=== PATIENT | male | born 1950 | race African-American/Black ===

== ENCOUNTER 2018-04-01 08:49 | Emergency (ER) | payer MEDICARE ==
[~2018-04-01] VITALS: Ht 182.9 cm; Wt 118.2 kg
[~2018-04-01 08:49] MED LIST: ALDACTONE 25MG25 M1 PO; COZAAR100 MG PO; FELODIPINE10 MG PO; GLIPIZIDE10 MG PO; GLUCOPHAGE500 MG/TAB PO; METFORMIN850 MG PO; NORCO 325 MG-51 TAB PO; PHENERGAN 25 TA25 MG PO; RANITIDINE150 MG PO
[2018-04-01 09:00] VITALS: TEMP 98.1
[2018-04-01] MEDS ORDERED: APRESOLINE 25MG25 MG PO (09:06)
[2018-04-01] MEDS ORDERED: LANTUS100 U/ML SQ (09:07)
[2018-04-01] MEDS ORDERED: NORVASC 10MG10 MG PO (09:07)
[2018-04-01] MEDS ORDERED: NOVOLOG FLEX100 U/ML SQ (09:07)
[2018-04-01] MEDS ORDERED: COZAAR 50MG50 MG/TAB PO (09:08)
[2018-04-01 09:36] LABS: BASO # 0.1 (0.0-0.2); BASO % 0.7 % (0.0-2.0); EOS # 0.2 (0.0-0.7); EOS % 2.7 % (0-4.0); GRAN # 4.8 (1.4-6.5); GRAN % 64.2 % (42.2-75.2); HEMATOCRIT 41.5 % (42.0-52.0); HEMOGLOBIN 14.1 g/dl (13.5-18.0); LYMPH # 1.8 (1.2-3.4); LYMPH % 24.1 % (20.0-51.0); MEAN CELL VOLUME 86 fl (80.0-100.0); MEAN CORPUSCULAR HEMOGLOBIN 29 pg (27.0-31.0); MEAN CORPUSCULAR HGB CONC 34 g/dl (33.0-37.0); MEAN PLATELET VOLUME 9.9 fl (7.4-10.4); MONO # 0.6 (0.1-0.6); PLATELET COUNT 327 K/mm3 (130-400); RED BLOOD COUNT 4.85 M/mm3 (4.20-5.60); REDCELL DISTRIBUTION WIDTH-CV 12.8 % (11.5-14.5)
[2018-04-01 09:43] LABS: PARTIAL THROMBOPLASTIN TIME 31.7 SECONDS (26.0-37.0)
[2018-04-01 09:50] LABS: ALBUMIN 3.6 gm/dL (3.5-5.0); BILIRUBIN,TOTAL 0.4 mg/dL (0.0-1.0); CALCIUM 9.2 mg/dL (8.4-10.2); CREATININE, serum 2.05 mg/dL (0.66-1.25); POTASSIUM 4.5 mmol/L (3.4-5.0)
[2018-04-01 10:01] LABS: TROPONIN-I 0.022 ng/mL (0.000-0.034)
[2018-04-01 11:29] VITALS: BP 161/88; PULSE 64
== END 2018-04-01 11:32 | disposition home or self-care (01) ==
LOC: COL.ER 08:49
PROVIDERS: Physician Assistant
DX: M62.81 Muscle weakness (generalized) (principal); I10 Essential (primary) hypertension; E11.9 Type 2 diabetes mellitus without complications; Z98.890 Other specified postprocedural states; Z79.4 Long term (current) use of insulin
CPT/HCPCS: J7030

== ENCOUNTER 2019-08-05 07:35 | Day surgery (SDC) | payer MEDICARE ==
[~2019-08-05] VITALS: Ht 182.9 cm; Wt 118.6 kg
[~2019-08-05 07:35] MED LIST changes: +APRESOLINE 25MG25 MG PO; +COZAAR 50MG50 MG/TAB PO; +LANTUS100 U/ML SQ; +NORVASC 10MG10 MG PO; +NOVOLOG FLEX100 U/ML SQ
[2019-08-05 08:31] VITALS: BP 196/94; PULSE 86; TEMP 98.4
[2019-08-05 09:17] VITALS: BP 153/84; PULSE 86; TEMP 97.7
--- NOTE | 2019-08-05 09:17 | NUR ---
Patient brought back to [facility] via cart. Ambulated to chair without difficulty. Placed on monitors, vital signs stable. Patient states he would like a juice at this time. Denies pain or nausea. Will continue to monitor.
[2019-08-05 09:32] VITALS: BP 162/94; PULSE 83
[2019-08-05 09:47] VITALS: BP 173/98; PULSE 89
--- NOTE | 2019-08-05 09:47 | NUR ---
Patient states he is feeling ready to go home. Awaiting conversation with Dr. Forrest. Will continue to monitor.
--- NOTE | 2019-08-05 10:12 | NUR ---
Patient is doing well. Tolerating drink at this time. Asking for jello and applesauce at this time. Will continue to monitor.
--- NOTE | 2019-08-05 10:25 | NUR ---
Discharge instructions reviwed with patient and . All questions answered. Patient brought down to lobby via wheel chair. To be driven home by .
== END 2019-08-05 10:25 | disposition home or self-care (01) ==
LOC: SDCO 07:35
DX: Z12.11 Encounter for screening for malignant neoplasm of colon (principal); Z86.010 Personal history of colon polyps; Z86.19 Personal history of other infectious and parasitic diseases; K57.30 Diverticulosis of large intestine without perforation or abscess without bleeding; E11.22 Type 2 diabetes mellitus with diabetic chronic kidney disease; I12.9 Hypertensive chronic kidney disease with stage 1 through stage 4 chronic kidney disease, or unspecified chronic kidney disease; N18.9 Chronic kidney disease, unspecified; G47.33 Obstructive sleep apnea (adult) (pediatric); E78.00 Pure hypercholesterolemia, unspecified; Z79.899 Other long term (current) drug therapy; Z79.4 Long term (current) use of insulin
CPT/HCPCS: J2704

== ENCOUNTER 2020-01-30 12:43 | Emergency (ER) | payer OTHER ==
[~2020-01-30] VITALS: Ht 182.9 cm; Wt 112.3 kg
[~2020-01-30 12:43] MED LIST changes: +AUGMENTIN 250150 ML PO; +DEMADEX100 MG PO
[2020-01-30 13:10] VITALS: TEMP 98.5
[2020-01-30] MEDS ORDERED: COREG 25MG25 MG/TAB PO (13:45)
[2020-01-30 14:31] LABS: BASO % 0.4 % (0.0-2.0); EOS # 0.3 (0.0-0.7); EOS % 4.4 % (0-4.0); GRAN # 4.5 (1.4-6.5); GRAN % 60.9 % (42.2-75.2); HEMOGLOBIN 10.3 g/dl (13.5-18.0); LYMPH # 1.8 (1.2-3.4); LYMPH % 24.1 % (20.0-51.0); MEAN CELL VOLUME 86 fl (80.0-100.0); MEAN CORPUSCULAR HEMOGLOBIN 29 pg (27.0-31.0); MEAN CORPUSCULAR HGB CONC 33 g/dl (33.0-37.0); MEAN PLATELET VOLUME 9.9 fl (7.4-10.4); MONO # 0.7 (0.1-0.6); MONO % 9.7 % (1.7-9.3); PLATELET COUNT 359 K/mm3 (130-400); RED BLOOD COUNT 3.62 M/mm3 (4.20-5.60); REDCELL DISTRIBUTION WIDTH-CV 13.3 % (11.5-14.5)
[2020-01-30 14:39] LABS: HEMATOCRIT 31.2 % (42.0-52.0)
[2020-01-30 14:42] LABS: CALCIUM 8.4 mg/dL (8.4-10.2); CREATININE, serum 6.39 (0.66-1.25); POTASSIUM 3.4 mmol/L (3.4-5.0)
[2020-01-30 14:48] LABS: INR 1.1 (0.8-3.0); PROTHROMBIN TIME 12.4 SECONDS (9.7-12.8)
[2020-01-30 15:39] VITALS: BP 165/96; PULSE 65
== END 2020-01-30 15:41 | disposition home or self-care (01) ==
LOC: COL.ER 12:43
PROVIDERS: Emergency Medicine
DX: R04.0 Epistaxis (principal); I12.9 Hypertensive chronic kidney disease with stage 1 through stage 4 chronic kidney disease, or unspecified chronic kidney disease; N18.9 Chronic kidney disease, unspecified; Z79.4 Long term (current) use of insulin

== ENCOUNTER 2020-01-31 12:43 | Emergency (ER) | payer OTHER ==
[~2020-01-31] VITALS: Ht 182.9 cm; Wt 112.3 kg
[~2020-01-31 12:43] MED LIST changes: +COREG 25MG25 MG/TAB PO
[2020-01-31 12:49] VITALS: TEMP 98.4
[2020-01-31 13:26] LABS: COLLECTION METHOD CLEAN CATCH
[2020-01-31 13:34] LABS: MUCOUS Present /lpf; PH 6 (5-8); SQUAMOUS EPITHELIAL 0-2 /hpf; URINE APPEARANCE Clear; URINE BACTERIA Rare /hpf; URINE BILIRUBIN Negative (NEGATIVE); URINE BLOOD Negative (NEGATIVE); URINE COLOR Yellow; URINE GLUCOSE 3+ (NEGATIVE); URINE KETONE Negative (NEGATIVE); URINE LEUKOCYTE ESTERASE Negative (NEGATIVE); URINE NITRATE Negative (NEGATIVE); URINE PROTEIN(semi-quant) 3+ (NEGATIVE); URINE RBC 0-2 /hpf; URINE UROBILINOGEN Negative (NEGATIVE)
[2020-01-31 14:41] VITALS: BP 140/85; PULSE 66
== END 2020-01-31 14:42 | disposition home or self-care (01) ==
LOC: COL.ER 12:43
PROVIDERS: Emergency Medicine
DX: E11.22 Type 2 diabetes mellitus with diabetic chronic kidney disease (principal); I12.0 Hypertensive chronic kidney disease with stage 5 chronic kidney disease or end stage renal disease; N18.6 End stage renal disease; Z99.2 Dependence on renal dialysis; Z79.4 Long term (current) use of insulin

== ENCOUNTER 2020-02-10 05:39 | Emergency (ER) | payer MEDICARE ==
[~2020-02-10] VITALS: Ht 182.9 cm; Wt 109.1 kg
[2020-02-10 05:43] VITALS: TEMP 98
[2020-02-10] MEDS ORDERED: CEPHALEXIN500 M1 PO (12:05)
[2020-02-10 12:15] VITALS: BP 162/84; PULSE 61
[2020-02-10] MEDS ORDERED: MUCINEX 60600 MG/TA1 PO (22:47)
[2020-02-10] MEDS ORDERED: FLONASEALLERGY NS (22:48)
== END 2020-02-10 12:54 | disposition home or self-care (01) ==
LOC: COL.ER 05:39
DX: R04.0 Epistaxis (principal); I12.9 Hypertensive chronic kidney disease with stage 1 through stage 4 chronic kidney disease, or unspecified chronic kidney disease; E11.22 Type 2 diabetes mellitus with diabetic chronic kidney disease; N18.9 Chronic kidney disease, unspecified; Z79.4 Long term (current) use of insulin

== ENCOUNTER 2020-02-10 20:45 | Emergency (ER) | payer MEDICARE ==
[~2020-02-10] VITALS: Ht 182.9 cm; Wt 112.3 kg
[~2020-02-10 20:45] MED LIST changes: +CEPHALEXIN500 M1 PO
[2020-02-10 20:53] VITALS: TEMP 99
[2020-02-10] MEDS ORDERED: MUCINEX 60600 MG/TA1 PO (22:47)
[2020-02-10] MEDS ORDERED: FLONASEALLERGY NS (22:48)
[2020-02-10 22:52] VITALS: BP 162/75; PULSE 71
== END 2020-02-10 22:54 | disposition home or self-care (01) ==
LOC: COL.ER 20:45
DX: R04.0 Epistaxis (principal); R09.81 Nasal congestion; I12.9 Hypertensive chronic kidney disease with stage 1 through stage 4 chronic kidney disease, or unspecified chronic kidney disease; E11.22 Type 2 diabetes mellitus with diabetic chronic kidney disease; N18.9 Chronic kidney disease, unspecified; Z79.4 Long term (current) use of insulin

== ENCOUNTER 2020-12-14 08:52 | Day surgery (SDC) | payer OTHER ==
[~2020-12-14] VITALS: Ht 182.9 cm; Wt 115.2 kg
[~2020-12-14 08:52] MED LIST changes: +FLONASEALLERGY NS; +MINOXIDIL 10 PO; +MINOXIDIL 2.5 PO; +MUCINEX 60600 MG/TA1 PO; +PHOS LO PO; +PHOSLO667 MG PO; +VITAMIN D31000 I1 PO
[2020-12-14] MEDS ORDERED: NOVOLOG FLEX100 U/ML SQ (10:39)
[2020-12-14 10:51] LABS: CALCIUM 9.3 mg/dL (8.4-10.2); CREATININE, serum 5.3 (0.66-1.25); POTASSIUM 4.4 mmol/L (3.4-5.0)
[2020-12-14 11:38] VITALS: BP 151/85; PULSE 63; TEMP 97.3
[2020-12-14] MEDS ORDERED: MIRALAX PA17 GM/Dose PO (11:43)
[2020-12-14] MEDS ORDERED: NORCO 325 MG-51 TAB PO (13:00)
[2020-12-14 13:40] VITALS: BP 146/83; PULSE 59; TEMP 97.7
--- NOTE | 2020-12-14 13:40 | NUR ---
Patient arrives to [facility] [place] [facility] via cart, accompanied by OUTREACH LIAISON Susie. He is alert and oriented. He denies any pain, nausea, or need. His fistula has a palpable thrill. It is on his right wrist and the incision is closed with clean/dry/intact glue. His peritoneal dialysis catheter has been removed and that site is clean/dry/ glue intact. Monitoring is applied -VSS and WNL on room air. Lights are dimmed for comfort, and patient is resting.
[2020-12-14 13:55] VITALS: BP 155/87; PULSE 58
--- NOTE | 2020-12-14 13:55 | NUR ---
VSS and WNL on room air. He is resting comfortably. Denies pain or nausea. He is offered and receives water to drink. He does not want to have any food.
[2020-12-14 14:10] VITALS: BP 155/85; PULSE 57
--- NOTE | 2020-12-14 14:30 | NUR ---
Patient ambulates to the restroom with standby assist and steady gait. He voids, and returns to room.
[2020-12-14 14:45] VITALS: BP 159/90; PULSE 58
[2020-12-14 15:00] VITALS: BP 146/85; PULSE 58
--- NOTE | 2020-12-14 15:15 | NUR ---
Patient states he is ready to go home. He has met discharge criteria. PIV is removed with catheter intact and hemostasis achieved. Discharge instructions are discussed. He denies any questions and verbalizes understanding. He is changing to his clothing independently.
--- NOTE | 2020-12-14 15:29 | NUR ---
Patient is escorted to the exit via wheelchair by staff. He is discharged to the care of his friend, Lori, who drives him home in a private car at 1529.
== END 2020-12-14 15:29 | disposition home or self-care (01) ==
LOC: SDCO
PROVIDERS: Surgery
DX: T85.9XXA Unspecified complication of internal prosthetic device, implant and graft, initial encounter (principal); N18.6 End stage renal disease; I12.0 Hypertensive chronic kidney disease with stage 5 chronic kidney disease or end stage renal disease; E11.22 Type 2 diabetes mellitus with diabetic chronic kidney disease; E11.21 Type 2 diabetes mellitus with diabetic nephropathy; G47.30 Sleep apnea, unspecified; Z79.4 Long term (current) use of insulin; Z49.02 Encounter for fitting and adjustment of peritoneal dialysis catheter; Z79.899 Other long term (current) drug therapy; Z79.82 Long term (current) use of aspirin; Z88.8 Allergy status to other drugs, medicaments and biological substances; Z20.822 Contact with and (suspected) exposure to COVID-19
CPT/HCPCS: J0690; J1644; J2405; J2704; J3010

== ENCOUNTER 2021-04-03 10:06 | Outpatient (CLI) | payer OTHER ==
[~2021-04-03] VITALS: Ht 183 cm; Wt 118.0 kg
[~2021-04-03 10:06] MED LIST changes: +MIRALAX PA17 GM/Dose PO
[2021-04-03 10:53] VITALS: BP 131/69; PULSE 56; TEMP 97.8
[2021-04-03] MEDS ORDERED: MINOXIDIL 10 PO (12:05)
[2021-04-03 13:00] VITALS: BP 121/72; PULSE 61
--- NOTE | 2021-04-03 13:00 | NUR ---
PT RETURNED TO [facility] 11 VIA BED FROM SUPPLY ANALYST, NO SEDATION WAS GIVEN, DONE UNDER LOCAL. HAS BANDAID TO RIGHT LOWER ARM CLEAN AND DRY, NO SIGNS OF BLEEDING. PT HAS NO C/O, JUICE GIVEN. CALL LIGHT IN REACH
[2021-04-03 13:15] VITALS: BP 135/75; PULSE 57
[2021-04-03 13:30] VITALS: BP 134/74; PULSE 56
[2021-04-03 14:00] VITALS: BP 145/78; PULSE 52
--- NOTE | 2021-04-03 14:15 | NUR ---
PT SITS ON SIDE OF BED AND TAKES SNACK, THEN KINGSLEY ARRIVED, NO C/O, REVIEWED DISCHARGE INST. WITH PT ON CARE OF SITE, PRECAUTIONS AND FOLLOWUP WITH VERBAL UNDERSTANDING.
[2021-04-03 14:45] VITALS: BP 140/78; PULSE 56
--- NOTE | 2021-04-03 14:45 | NUR ---
[facility] INTACT. PT UP AND DRESSED, PT DISCHARGED VIA W/C TO ENTRANCE, PT DROVE SELF STATES FEELS WELL, NO SEDATION WAS GIVEN
== END 2021-04-03 15:00 | disposition home or self-care (01) ==
LOC: COL.CAR 10:06
DX: T82.898A Other specified complication of vascular prosthetic devices, implants and grafts, initial encounter (principal)
CPT/HCPCS: J1644; Q9967

== ENCOUNTER 2021-05-03 08:54 | Day surgery (SDC) | payer OTHER ==
[~2021-05-03] VITALS: Ht 182.9 cm; Wt 119.4 kg
[2021-05-03 10:23] VITALS: BP 143/68; PULSE 56; TEMP 98.4
[2021-05-03] MEDS ORDERED: PROVENTIL0.09 MG/A1 IH (10:29)
[2021-05-03 13:25] VITALS: BP 140/65; PULSE 50; TEMP 97.4
--- NOTE | 2021-05-03 13:25 | NUR ---
Pt to [facility] bay 6 via cart from PACU. Pt drowsy, but awake. Pt denies pain or nausea. Pt has burton set intact to right arm incision. Site is clean, and dry. +Thrill noted at fistula with +2 right radial pulse. IV fluids are at TKO. IV site to left forearm without redness or edema. Soda and muffin given per pt request. Will continue to monitor. Call light within reach.
[2021-05-03 13:40] VITALS: BP 139/62; PULSE 50
--- NOTE | 2021-05-03 13:40 | NUR ---
Pt tolerating food and fluids without difficulties. Pt denies needs. Call light within reach.
[2021-05-03 13:55] VITALS: BP 145/67; PULSE 49
--- NOTE | 2021-05-03 13:55 | NUR ---
Pt continues to rest. Denies needs. Call light within reach.
[2021-05-03 14:10] VITALS: BP 137/61; PULSE 50
--- NOTE | 2021-05-03 14:10 | NUR ---
IV site discontinued with all parts intact. Discharge instructions reviewed. Pt voices understanding. Pt up to dress. Call light within reach.
--- NOTE | 2021-05-03 14:30 | NUR ---
Pt escorted to private car via wheel chair. Pt accompanied home by his friend.
== END 2021-05-03 14:30 | disposition home or self-care (01) ==
LOC: SDCO 08:54
DX: T82.590A Other mechanical complication of surgically created arteriovenous fistula, initial encounter (principal); I13.2 Hypertensive heart and chronic kidney disease with heart failure and with stage 5 chronic kidney disease, or end stage renal disease; E11.22 Type 2 diabetes mellitus with diabetic chronic kidney disease; N18.6 End stage renal disease; I50.30 Unspecified diastolic (congestive) heart failure; I25.2 Old myocardial infarction; G47.33 Obstructive sleep apnea (adult) (pediatric); Z20.822 Contact with and (suspected) exposure to COVID-19; Z99.2 Dependence on renal dialysis; Z79.4 Long term (current) use of insulin; Z79.82 Long term (current) use of aspirin
CPT/HCPCS: J0690; J2704; J7030

== ENCOUNTER → 2021-05-07 | Outpatient (CLI) | payer OTHER ==
[~2021-05-07] MED LIST changes: +PROVENTIL0.09 MG/A1 IH
== END ==
LOC: COL.RAD 11:34
DX: R18.8 Other ascites (principal)

== ENCOUNTER → 2021-05-17 | Outpatient (CLI) | payer OTHER | LOC: COL.RAD 07:41 | DX: R18.8 Other ascites (principal) ==

== ENCOUNTER 2022-11-08 16:03 | Emergency (ER) | payer OTHER ==
[~2022-11-08] VITALS: Ht 182.9 cm; Wt 113.6 kg
[2022-11-08 16:08] VITALS: TEMP 98.9
[2022-11-08 17:23] VITALS: BP 153/88; PULSE 79
== END 2022-11-08 17:25 | disposition home or self-care (01) ==
LOC: COL.ER 16:03
DX: Z49.01 Encounter for fitting and adjustment of extracorporeal dialysis catheter (principal)

== ENCOUNTER 2022-12-31 10:29 | Day surgery (SDC) | payer OTHER ==
[~2022-12-31] VITALS: Ht 180.3 cm; Wt 112.3 kg
[2022-12-31] VITALS (7 sets, daily range): BP systolic 151–203; BP diastolic 57–75; PULSE 55–67; TEMP 96.8–97.8
[2022-12-31] MEDS ORDERED: COZAAR100 MG PO (11:48)
[2022-12-31] MEDS ORDERED: PARLODEL 2.5MG2.5 MG PO (11:49)
[2022-12-31] MEDS ORDERED: CELEBREX 200MG200 MG PO (11:50)
[2022-12-31 11:53] LABS: CALCIUM 9.5 mg/dL (8.4-10.2); CREATININE, serum 6.47 mg/dL (0.72-1.25); POTASSIUM 4.6 mmol/L (3.5-4.5)
[2022-12-31] MEDS ORDERED: NORCO 325 MG-51 TAB PO (14:34)
--- NOTE | 2022-12-31 15:30 | NUR ---
1530 PATIENT RETURNS TO ROOM 8 VIA CART. PATIENT IS DROWSY BUT ALERTS TO VERBAL STIMULI. PATIENT IS IN ROOM. RESPIRATIONS EVEN AND UNLABORED. VITAL SIGNS OBTAINED. 3 LAP SITES TO ABDOMEN WITH SKIN GLUE, CDI. PERITONEAL DIALYSIS CATHETER SITE IS COVERED WITH 4X4 AND MEDIPORE, CDI. PATIENT IS NOT C/O ANY PAIN AT THIS TIME. PATIENT REQUESTED AN APPLE JUICE, NO DIFFICULTIES SWALLOWING. 1600 PATIENT BLOOD PRESSURE CONTINUES TO RISE STEADILY. PATIENT'S BLOOD PRESSURE PRE OP WAS HIGH. THIS NURSE CALLED ANESTHESIA TO INFORM HIM OF RECCENT BLOOD PRESSURE'S. CRAIG Mcduffie STATES THAT HE IS OK WITH SENDING PATIENT HOME AND NNO. PATIENT STATES THAT HE FEELS FINE. NO HEADACHE OR BLURRED VISION. 1608 PATIENT STATES THAT HIS PAIN IS A 8/10. THIS NURSE GAVE PATIENT A PRN NORCO PER MD ORDERS. 1610 THIS NURSE REVIEWED DISCHARGE INSTRUCTIONS WITH PATIENT AND PATIENT . BOTH VERBALIZED UNDERSTANDING. 1625 DISCONINUED IV FROM LEFT AC WITH NO DIFFICULTIES. 1630 PATIENT DRESSES SELF. 1640 PATIENT DISCHARGES FROM UNIT VIA WHEELCHAIR IN STABLE CONDITION. PATIENT IS DRIVING PATIENT HOME.
== END 2022-12-31 16:40 | disposition home or self-care (01) ==
LOC: SDCO 10:29
PROVIDERS: Nurse Anesthetist, Certified Registered
DX: I12.0 Hypertensive chronic kidney disease with stage 5 chronic kidney disease or end stage renal disease (principal); E11.22 Type 2 diabetes mellitus with diabetic chronic kidney disease; N18.6 End stage renal disease; G47.33 Obstructive sleep apnea (adult) (pediatric); Z99.81 Dependence on supplemental oxygen; Z79.4 Long term (current) use of insulin
CPT/HCPCS: C1750; J0690; J1100; J2405; J2704; J3010; J7030

== ENCOUNTER → 2023-07-23 | Outpatient (CLI) | payer OTHER ==
[~2023-07-23] MED LIST changes: +AMOXICILLIN 50500 MG PO; +ASPIRIN E.C. 8181 MG PO; +CELEBREX 200MG200 MG PO; +COUMADIN 2MG2 MG/TAB PO; +DIFLUCAN200 MG PO; +JANTOVEN2 MG PO; +PARLODEL 2.5MG2.5 MG PO; +ROCALTROL0.5 MCG PO; +testosterone PO
== END ==
LOC: COL.RAD 13:07
DX: R10.9 Unspecified abdominal pain (principal); R18.8 Other ascites
CPT/HCPCS: Q9967

== ENCOUNTER 2023-08-05 06:19 | Emergency (ER) | payer OTHER ==
[~2023-08-05] VITALS: Ht 182.9 cm; Wt 114.5 kg
[2023-08-05 06:33] VITALS: TEMP 97.9
[2023-08-05 06:53] LABS: BASO % 0.6 % (0.0-2.0); EOS # 0.4 K/mm3 (0.0-0.7); EOS % 5.1 % (0.0-4.0); GRAN # 4.4 K/mm3 (1.4-6.5); GRAN % 63.3 % (42.2-75.2); HEMOGLOBIN 12.1 g/dl (13.5-18.0); LYMPH # 1.5 K/mm3 (1.2-3.4); LYMPH % 21.4 % (20.0-51.0); MEAN CELL VOLUME 89 fl (80.0-100.0); MEAN CORPUSCULAR HEMOGLOBIN 30 pg (27-31); MEAN CORPUSCULAR HGB CONC 34 g/dl (33.0-37.0); MEAN PLATELET VOLUME 9.9 fl (7.4-10.4); MONO # 0.7 K/mm3 (0.1-0.6); MONO % 9.3 % (1.7-9.3); PLATELET COUNT 292 K/mm3 (130-400); RED BLOOD COUNT 4.04 M/mm3 (4.20-5.60); REDCELL DISTRIBUTION WIDTH-CV 14.4 % (11.5-14.5)
[2023-08-05 07:04] LABS: PROTHROMBIN TIME 11.3 SECONDS (9.7-12.8)
[2023-08-05 07:06] LABS: PARTIAL THROMBOPLASTIN TIME 30.7 SECONDS (26.0-37.0)
[2023-08-05 07:10] LABS: ALBUMIN 3.6 gm/dL (3.4-4.8); BILIRUBIN,TOTAL 0.4 mg/dL (0.2-1.2); CALCIUM 8.8 mg/dL (8.4-10.2); CREATININE, serum 8.76 mg/dL (0.72-1.25); POTASSIUM 4.2 mmol/L (3.5-4.5); TOTAL PROTEIN 7.9 gm/dL (6.2-8.1)
[2023-08-05 07:18] LABS: TROPONIN-I 0.035 ng/mL (0.00-0.033)
[2023-08-05 08:49] VITALS: BP 174/89; PULSE 56
== END 2023-08-05 08:57 | disposition home or self-care (01) ==
LOC: COL.ER 06:19
PROVIDERS: Emergency Medicine
DX: R06.00 Dyspnea, unspecified (principal); R79.89 Other specified abnormal findings of blood chemistry; R60.0 Localized edema; E11.22 Type 2 diabetes mellitus with diabetic chronic kidney disease; I12.0 Hypertensive chronic kidney disease with stage 5 chronic kidney disease or end stage renal disease; N18.6 End stage renal disease; E66.01 Morbid (severe) obesity due to excess calories; Z68.34 Body mass index [BMI] 34.0-34.9, adult; Z99.2 Dependence on renal dialysis; Z79.4 Long term (current) use of insulin